=== PATIENT | female | born 1970 | race Caucasian/White ===

== ENCOUNTER → 2018-08-05 | Outpatient (CLI) | payer BC ==
--- NOTE | 2018-08-05 16:26 | RAD ---
EXAM: Left humerus, 2 views; left shoulder, 3 views. HISTORY: Pain. COMPARISON: None. FINDINGS: 2 views left humerus and 3 views of the left shoulder obtained. There is no fracture, dislocation or subluxation. IMPRESSION: No acute osseous finding. Electronically signed by: Rhiannon Gil MD (08/05/2018 4:23 PM) [id number]
== END | disposition home or self-care (01) ==
LOC: RAD 15:55
PROVIDERS: ATTEND Family Medicine
DX: M25.512 Pain in left shoulder (principal)
CPT/HCPCS: 73030; 73060

== ENCOUNTER 2019-06-29 17:04 | Emergency (ER) | payer BC ==
[~2019-06-29] VITALS: Ht 167.6 cm; Wt 77.5 kg
[2019-06-29] MEDS ORDERED: DEXAMETHASONE 4 MG TABLET PO ONE (18:00)
--- NOTE | 2019-06-29 18:04 | PHYS DOC ---
Past History Past Medical History: No Pertinent History Past Surgical History: , Hysterectomy Alcohol Use: None Drug Use: None Adult General Chief Complaint Chief Complaint: SORE THROAT HPI HPI Patient is a sore throat moderate worse with swallowing times one week associated with fatigue subjective fever at times Allergies Allergies Allergies Coded Allergies Type Severity Reaction Last Updated Verified codeine Allergy Unknown 06/29/19 Yes Physical Exam Physical Exam Constitutional: Well developed, well nourished, no acute distress, non-toxic appearance. [] HENT: Normocephalic, atraumatic, bilateral external ears normal, oropharynx moist, no oral exudates, nose normal. []Shotty lymphadenopathy noted no exudate no fluctuance of the tonsillar pillars noted. Eyes: PERRLA, EOMI, conjunctiva normal, no discharge. [] Neck: Normal range of motion, no tenderness, supple, no stridor. [] Cardiovascular:Heart rate regular rhythm, no murmur [] Lungs & Thorax: Bilateral breath sounds clear to auscultation [] Extremities: No tenderness, no cyanosis, no clubbing, ROM intact, no edema. [] Neurologic: Alert and oriented X 3, normal motor function, normal sensory function, no focal deficits noted. [] Psychologic: Affect normal, judgement normal, mood normal. [] Current Patient Data Vital Signs Vital Signs Date Time Temp Pulse Resp B/P (MAP) Pulse Ox O2 Delivery O2 Flow Rate FiO2 06/29/19 17:21 98.1 55 18 100 Room Air * Moderate Temperature (Fahrenheit): * 98.1 degrees F (97.6-99.5) Patient Temperature * 98.1 degrees F (97.5-99.5) Temperature Source * Oral Blood Pressure Systolic * 127 mm Hg (100-140) Blood Pressure Diastolic * 58 mm Hg (60-100) L Blood Pressure Mean * 81 mm Hg Blood Pressure Location * Right Arm Blood Pressure Source * Automatic Cuff Pulse Rate * 55 beats per minute (60-90) L Pulse Assessment Method * Monitor Respiratory Rate * 18 breaths per minute (12-24) Oxygen Delivery Method * Room Air Bedside Pulse Oximetry * 100 % Treatment Prior to Arrival Lab Results Laboratory Tests Test 06/29/19 17:40 Group A Streptococcus Rapid Negative (NEGATIVE) EKG EKG [] Radiology/Procedures Radiology/Procedures [] Course & Med Decision Making Course & Med Decision Making Pertinent Labs and Imaging studies reviewed. (See chart for details) []Decadron given for presumed viral pharyngitis based on negative rapid strep pa tient reassured well appearing no evidence of deep space neck infection Dragon Disclaimer Dragon Disclaimer This electronic medical record was generated, in whole or in part, using a voice recognition dictation system. Departure Departure: Impression: Primary Impression: Sore throat Disposition: HOME, SELF-CARE Condition: STABLE Patient Instructions: Sore Throat, [id number] UZIEL MCELROY MD Jun 29, 2019 18:04
[2019-06-29] MEDS ORDERED: DEXAMETHASONE SOD PHOS 10 MG/ML VIAL ONE (18:05)
[2019-06-29] MEDS ORDERED: DEXAMETHASONE SOD PHOS 4 MG/ML VIAL ONE (18:07)
[2019-06-29 18:31] VITALS: BP 114/69
== END 2019-06-29 18:32 | disposition home or self-care (01) ==
LOC: ER 17:04
DX: J02.9 Acute pharyngitis, unspecified (principal); Z88.5 Allergy status to narcotic agent
CPT/HCPCS: 87070; 87880; 99283; J8540

== ENCOUNTER 2020-08-04 12:55 | Emergency (ER) | payer BC ==
--- NOTE | 2020-08-04 14:27 | PHYS DOC ---
Past History Past Medical History: No Pertinent History Past Surgical History: , Hysterectomy Alcohol Use: None Drug Use: None General Adult EDM: Chief Complaint: URINARY RETENTION HPI: HPI: Patient is a 80-year-old female who presents with lower back pain and states "I feel like I have no sensation to urinate". Patient had gastric sleeve on July 19. Patient reports that symptoms started the day after. Patient states couple of days ago she noticed blood in her urine. Patient was seen at urgent care and started on Bactrim. Patient states the doctor called her today and told her that she did not have a UTI. Patient also reports a foul smell to her urine. Patient has been taking Tylenol at home for lower back discomfort. Patient denies pain with urination or frequency. Patient denies any health history. Review of Systems: Review of Systems: Constitutional: Denies fever or chills Eyes: Denies change in visual acuity HENT: Denies nasal congestion or sore throat Respiratory: Denies cough or shortness of breath Cardiovascular: Denies chest pain or edema GI: Denies abdominal pain, nausea, vomiting, bloody stools or diarrhea : Denies dysuria, reports decreased sensation to urinate. Musculoskeletal: Denies back pain or joint pain Integument: Denies rash Neurologic: Denies headache, focal weakness or sensory changes Endocrine: Denies polyuria or polydipsia Lymphatic: Denies swollen glands Psychiatric: Denies depression or anxiety Allergies: Allergies: Allergies Coded Allergies Type Severity Reaction Last Updated Verified codeine Allergy Unknown 06/29/19 Yes Physical Exam: PE: Constitutional: Well developed, well nourished, no acute distress, non-toxic a ppearance. [] HENT: Normocephalic, atraumatic, bilateral external ears normal, oropharynx moist, no oral exudates, nose normal. [] Eyes: PERRLA, EOMI, conjunctiva normal, no discharge. [] Neck: Normal range of motion, no tenderness, supple, no stridor. [] Cardiovascular:Heart rate regular rhythm, no murmur [] Lungs & Thorax: Bilateral breath sounds clear to auscultation [] Abdomen: Bowel sounds normal, soft, no tenderness, no masses, no pulsatile masses. [] Skin: Warm, dry, no erythema, no rash. [] Back: Lower back tenderness, no CVA tenderness. [] Extremities: No tenderness, no cyanosis, no clubbing, ROM intact, no edema. [] Neurologic: Alert and oriented X 3, normal motor function, normal sensory function, no focal deficits noted. [] Psychologic: Affect normal, judgement normal, mood normal. [] EKG: EKG: [] Radiology/Procedures: Radiology/Procedures: []CT abdomen and pelvis without contrast: Reason for examination: Loss of sensation to urinate. Helical images were obtained through the abdomen and pelvis with no intravenous or oral contrast administered. Reconstruction was performed in sagittal and coronal planes. Exposure: One or more of the following individualized dose reduction techniques were utilized for this examination: 1. Automated exposure control 2. Adjustment of the mA and/or kV according to patient size 3. Use of iterative reconstruction technique. The lung bases are clear. The heart size is normal with no pericardial effusion. There is a small hypodense lesion in the right lobe of the liver consistent with a small cyst measuring approximately 1 cm in size. No abnormality seen at the spleen, adrenal glands, pancreas or gallbladder. The abdominal aorta and inferior vena cava show no acute abnormalities. No abnormality seen at the appendix. There is no evidence of diverticulosis, diverticulitis or colitis. The small intestinal tract shows no abnormal dilatation, wall thickening or obstruction. There are postop changes in the stomach probably from gastric sleeve procedure. No abnormality seen at the duodenum. The kidneys show no renal masses, renal calculi, hydronephrosis or evidence of obstructive uropathy. No abnormality seen at the bladder or vaginal cuff. The ovary still appear to be present with possibly a small cyst at the left ovary measuring 9.4 mm in size. There does appear to be a small amount of fluid in the pelvic cul-de-sac. There is a unilateral pars defect on the left at the L5 vertebral body which is sclerotic and has a chronic appearance. No other focal bony abnormalities are seen. IMPRESSION: Small 1 cm lesion consistent with a cyst in the right lobe of the liver. Small 1.4 mm hypodense lesion consistent with a cyst in the left ovary. Small amount of free fluid in the pelvic cul-de-sac. 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 No apparent abnormalities of the kidneys or bladder. Electronically signed by: Dilma Romero MD (08/04/2020 3:00 PM) [facility] Heart Score: Risk Factors: Risk Factors: DM, Current or recent (<one month) smoker, HTN, HLP, family history of CAD, obesity. Risk Scores: Score 0 - 3: 2.5% MACE over next 6 weeks - Discharge Home Score 4 - 6: 20.3% MACE over next 6 weeks - Admit for Clinical Observation Score 7 - 10: 72.7% MACE over next 6 weeks - Early Invasive Strategies Course & Med Decision Making: Course & Med Decision Making Pertinent Labs and Imaging studies reviewed. (See chart for details) []Patient is a 80-year-old female who presents with lower back pain and states "I feel like I have no sensation to urinate". Patient had gastric sleeve on July 19. Patient reports that symptoms started the day after. Patient states couple of days ago she noticed blood in her urine. Patient was seen at urgent care and started on Bactrim. Patient states the doctor called her today and told her that she did not have a UTI. Patient also reports a foul smell to her urine. Patient has been taking Tylenol at home for lower back discomfort. Patient denies pain with urination or frequency. Patient denies any health history. UA ordered to check for infection. CT of abdomen and pelvis ordered. UA negative for leuks and nitrates. CT of abdomen negative for any acute abnormalities.CT did show small 1 cm lesion consistent with a cyst in the right lobe of the liver.Small 1.4 mm hypodense lesion consistent with a cyst in the left ovary. BUN and creatinine and lipase are slightly elevated. Informed patient of CT results and lab results. Patient is to follow-up with her PCP for further testing. Patient to return the emergency room with further concerns or worsening symptoms. Patient is okay with this plan. Dragon Disclaimer: Dragon Disclaimer: This electronic medical record was generated, in whole or in part, using a voice recognition dictation system. Departure Departure: Impression: Primary Impression: Symptoms involving urinary system Additional Impression: Blood in urine Qualified Codes: R31.9 - Hematuria, unspecified Disposition: 01 DC HOME SELF CARE/HOMELESS Condition: STABLE Referrals: JEN CHINO MD (PCP) Additional Instructions: You were seen in the emergency room for loss of sensation to urinate and blood in your urine. Your UA was negative for infection. Your CT of your abdomen and pelvis was negative for any acute abnormalities. The CT of your abdomen did show small 1 cm lesion consistent with a cyst in the right lobe of the liver. It also showed small 1.4 mm hypodense lesion consistent with a cyst in the left ovary. These results are something that you need to follow-up with your PCP about and I do not believe are relevant to the symptoms you are having today. Please return to the emergency room with worsening symptoms or concerns. EMERGENCY DEPARTMENT GENERAL DISCHARGE INSTRUCTIONS Thank you for coming to [facility] (ED) today and trusting us with you care. We trust that you had a positivie experience in our Emergency Department. If you wish to speak to the department management, you may call the director at [phone]. YOUR FOLLOW UP INSTRUCTIONS ARE FOLLOWS: 1. Do you have a private Doctor? If you do not have a private doctor, please ask for a resource list of physicians or clinics that may be able to assist you with fo llow up care. 2. The Emergency Physician has interpreted your x-rays. The X-Ray specialist will also review them. If there is a change in the findings, you will be notified in 48 hours when at all possible. 3. A lab test or culture has been done, your results will be reviewed and you will be notified if you need a change in treatment. ADDITIONAL INSTRUCTIONS AND INFORMATION: 1. Your care today has been supervised by a physician who is specially trained in emergency care. Many problems require more than one evaluation for a complete diagnosis and treatment. We recommend that you schedule your follow up appointment as recommended to ensure complete treatment of you illness or injury. If you are unable to obtain follow up care and continue to have a problem, or if your condition worsens, we recommend that you return to the ED. 2. We are not able to safely determine your condition over the phone nor are we able to give sound medical advice over the phone. For these safety reasons, if you call for medical advice we will ask you to come to the ED for further evaluation. 3. If you have any questions regarding these discharge instructions please call the ED at [phone]. SAFETY INFORMATION: In the interest of safety, wellness, and injury prevention; we encourage you to wear your sealbelt, if you smoke; quite smoking, and we encourage family to use a protecti ve helmet for bicycling and other sporting events that present an increased risk for head injury. IF YOUR SYMPTOMS WORSEN OR NEW SYMPTOMS DEVELOP, OR YOU HAVE CONCERNS ABOUT YOUR CONDITION; OR IF YOUR CONDITION WORSENS WHILE YOU ARE WAITING FOR YOUR FOLLOW UP APPOINTMENT; EITHER CONTACT YOUR PRIMARY CARE DOCTOR, THE PHYSICIAN WHOSE NAME AND NUMBER YOU WERE GIVEN, OR RETURN TO THE ED IMMEDIATELY. HEAVENLY OLIVAREZ APRN Aug 04, 2020 14:27
[2020-08-04 14:40] LABS: CALCIUM 8.7 mg/dL (8.5-10.1); CREATININE 1.2 mg/dL (0.6-1.0); GFR 47.4; POTASSIUM 4.2 mmol/L (3.5-5.1)
[2020-08-04 14:41] LABS: BASO # 0.1 x10^3/uL (0.0-0.2); BASO % 1 % (0-3); EOS # 0.1 x10^3/uL (0.0-0.7); EOS % 2 % (0-3); HEMATOCRIT 37.8 % (36.0-47.0); HEMOGLOBIN 12.6 g/dL (12.0-15.5); LYMPH # 1.4 x10^3/uL (1.0-4.8); LYMPH % 25 % (24-48); MEAN CORPUSCULAR HEMOGLOBIN 29 pg (25-35); MEAN CORPUSCULAR HGB CONC 33 g/dL (31-37); MEAN CORPUSCULAR VOLUME 88 fL (79-100); MONO # 0.8 x10^3/uL (0.0-1.1); MONO % 13 % (0-9); NEUT # 3.4 x10^3uL (1.8-7.7); NEUT % 59 % (31-73); PLATELET COUNT 238 x10^3/uL (140-400); RED BLOOD COUNT 4.29 x10^6/uL (3.50-5.40); RED CELL DISTRIBUTION WIDTH 13.2 % (11.5-14.5); WHITE BLOOD COUNT 5.7 x10^3/uL (4.0-11.0)
[2020-08-04 14:46] LABS: ALBUMIN 3.4 g/dL (3.4-5.0); ALBUMIN/GLOBULIN RATIO 0.9 (1.0-1.7); TOTAL BILIRUBIN 0.1 mg/dL (0.2-1.0); TOTAL PROTEIN 7.1 g/dL (6.4-8.2)
[2020-08-04 14:47] LABS: BACTERIA,URINE MOD /HPF (0-FEW); BILIRUBIN,URINE NEG (NEG); CLARITY,URINE CLEAR; COLOR,URINE YELLOW; GLUCOSE,URINE NEG (NEG); NITRITE,URINE NEG (NEG); RBC,URINE OCC /HPF (0-2); SQUAMOUS EPITHELIAL CELL,UR MANY /LPF; UROBILINOGEN,URINE 0.2 mg/dL (0.2 mg/dL)
--- NOTE | 2020-08-04 15:03 | RAD ---
CT abdomen and pelvis without contrast: Reason for examination: Loss of sensation to urinate. Helical images were obtained through the abdomen and pelvis with no intravenous or oral contrast admi nistered. Reconstruction was performed in sagittal and coronal planes. Exposure: One or more of the following individualized dose reduction techniques were utilized for thi s examination: 1. Automated exposure control 2. Adjustment of the mA and/or kV according to patient size 3. Use of iterative reconstruction technique. The lung bases are clear. The heart size is normal with no pericardial effusion. There is a small hypodense lesion in the right lobe of the liver consistent with a small cyst measuri ng approximately 1 cm in size. No abnormality seen at the spleen, adrenal glands, pancreas or gallbla dder. The abdominal aorta and inferior vena cava show no acute abnormalities. No abnormality seen at the appendix. There is no evidence of diverticulosis, diverticulitis or colitis. The small intestinal tract shows no abnormal dilatation, wall thickening or obstruction. There are postop changes in the stomach probably from gastric sleeve procedure. No abnormality seen at the duodenum. The kidneys show no renal masses, renal calculi, hydronephrosis or evidence of obstructive uropathy. No abnormality seen at the bladder or vaginal cuff. The ovary still appear to be present with possibl y a small cyst at the left ovary measuring 9.4 mm in size. There does appear to be a small amount of fluid in the pelvic cul-de-sac. There is a unilateral pars defect on the left at the L5 vertebral bod y which is sclerotic and has a chronic appearance. No other focal bony abnormalities are seen. IMPRESSION: Small 1 cm lesion consistent with a cyst in the right lobe of the liver. Small 1.4 mm hypodense lesion consistent with a cyst in the left ovary. Small amount of free fluid in the pelvic cul-de-sac. 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 No apparent abnormalities of the kidneys or bladder. Electronically signed by: Dilma Duarte MD (08/04/2020 3:00 PM) [facility]
== END 2020-08-04 16:16 | disposition home or self-care (01) ==
LOC: ER 12:55
DX: R31.9 Hematuria, unspecified (principal); M54.5 Low back pain; R20.2 Paresthesia of skin; Z98.890 Other specified postprocedural states; Z90.710 Acquired absence of both cervix and uterus; Z88.5 Allergy status to narcotic agent
CPT/HCPCS: 36415; 74176; 80053; 81001; 83690; 85025; 87086; 99284

== ENCOUNTER 2021-10-22 09:08 | Emergency (ER) | payer BC ==
[~2021-10-22] VITALS: Ht 167.6 cm; Wt 77.5 kg
[2021-10-22 09:15] VITALS: BP 106/43
[2021-10-22] MEDS ORDERED: VALA10008 PO (09:56)
[2021-10-22] MEDS ORDERED: PRED50TA PO (09:56)
[2021-10-22] MEDS ORDERED: HYDR-2155 PO (09:56)
--- NOTE | 2021-10-22 10:00 | PHYS DOC ---
Past History Past Medical History: No Pertinent History Past Surgical History: , Hysterectomy Alcohol Use: None Drug Use: None Adult General Chief Complaint Chief Complaint: MULTIPLE COMPLAINTS HPI HPI Patient presents with complaint of ear pain initially beginning 2 days ago. Patient then with pain spreading to the right posterior head and neck region and now developed a rash in last 24 hours in this region. Patient denies any fevers or chills, no vertigo no dizziness. Patient denies any eye discomfort or pain Review of Systems Review of Systems Constitutional: Denies fever or chills [] Eyes: Denies change in visual acuity, redness, or eye pain [] HENT: Denies nasal congestion or sore throat [] Respiratory: Denies cough or shortness of breath [] Cardiovascular: No additional information not addressed in HPI [] GI: Denies abdominal pain, nausea, vomiting, bloody stools or diarrhea [] : Denies dysuria or hematuria [] Musculoskeletal: Denies back pain or joint pain [] Integument: Rash to posterior neck and head Neurologic: Denies headache, focal weakness or sensory changes [] Endocrine: Denies polyuria or polydipsia [] All other systems were reviewed and found to be within normal limits, except as documented in this note. Allergies Allergies Allergies Coded Allergies Type Severity Reaction Last Updated Verified codeine Allergy Unknown 06/29/19 Yes Physical Exam Physical Exam Constitutional: Well developed, well nourished, no acute distress, non-toxic appearance. [] HENT: Normocephalic, atraumatic, bilateral external ears normal, oropharynx moist, no oral exudates, nose normal. [] Eyes: PERRLA, EOMI, conjunctiva normal, no discharge. [] Neck: Normal range of motion, no tenderness, supple, no stridor. [] Cardiovascular:Heart rate regular rhythm, no murmur [] Lungs & Thorax: Bilateral breath sounds clear to auscultation [] Abdomen: Bowel sounds normal, soft, no tenderness, no masses, no pulsatile masses. [] Skin: Rash noted to right posterior neck and right posterior scalp region, does not cross the midline, significant pain in this area with minimal palpation Back: No tenderness, no CVA tenderness. [] Extremities: No tenderness, no cyanosis, no clubbing, ROM intact, no edema. [] Neurologic: Alert and oriented X 3, normal motor function, normal sensory function, no focal deficits noted. [] Psychologic: Affect normal, judgement normal, mood normal. [] Current Patient Data Vital Signs Vital Signs Date Time Temp Pulse Resp B/P (MAP) Pulse Ox O2 Delivery O2 Flow Rate FiO2 10/22/21 09:15 97.9 66 14 106/43 (64) 99 Room Air EKG EKG [] Radiology/Procedures Radiology/Procedures [] Impressions: Shingles Heart Score C/O Chest Pain: No HEART Score for Chest Pain: HEART Score for Chest Pain Response (Comments) Value History Slighlty/Non-Suspicious 0 ECG Normal 0 Age >45 - < 65 1 Risk Factors No Risk Factors 0 Troponin < Normal Limit 0 Total 1 Risk Factors: Risk Factors: DM, Current or recent (<one month) smoker, HTN, HLP, family history of CAD, obesity. Risk Scores: Risk Factors: DM, Current or recent (<one month) smoker, HTN, HLP, family history of CAD, obesity. Course & Med Decision Making Course & Med Decision Making Patient with rash and pain consistent with shingles. There is no ophthalmic involvement. Patient will be initiated on corticosteroids as well as antiviral. Patient counseled at length as to return for any eye involvement. Return precautions discussed Dragon Disclaimer Dragon Disclaimer This electronic medical record was generated, in whole or in part, using a voice recognition dictation system. Departure Departure: Impression: Primary Impression: Shingles Disposition: 01 HOME / SELF CARE / HOMELESS Condition: STABLE Referrals: JEN CHINO MD (PCP) Patient Instructions: Shingles Scripts Prednisone (PREDNISONE) 50 Mg Tablet 50 MG PO DAILY for shingles for 5 Days, #5 TAB Prov: ANGELITO GALLO MD 10/22/21 Valacyclovir Hcl (VALACYCLOVIR) 1,000 Mg Tablet 1000 MG PO TID for shingles for 7 Days, #21 TAB Prov: ANGELITO GALLO MD 10/22/21 ANGELITO GALLO MD October 22, 2021 10:00
== END 2021-10-22 10:00 | disposition home or self-care (01) ==
LOC: ER 09:08
DX: B02.9 Zoster without complications (principal); H92.01 Otalgia, right ear; Z88.5 Allergy status to narcotic agent
CPT/HCPCS: 99283

== ENCOUNTER 2021-11-06 15:47 | Emergency (ER) | payer SELFPAY ==
[~2021-11-06] VITALS: Ht 167.6 cm; Wt 77.5 kg
[~2021-11-06 15:47] MED LIST: HYDR-2155 PO; PRED50TA PO; VALA10008 PO
[2021-11-06 16:06] VITALS: BP 120/53
[2021-11-06] MEDS ORDERED: GABA-586 PO (17:05)
[2021-11-06] MEDS ORDERED: OXYC1TAB19 PO (17:05)
--- NOTE | 2021-11-06 17:10 | PHYS DOC ---
Past History Past Medical History: No Pertinent History (HEAVENLY OLIVAREZ APRN) Past Surgical History: , Hysterectomy (HEAVENLY OLIVAREZ APRN) Alcohol Use: None Drug Use: None (HEAVENLY OLIVAREZ APRN) General Adult EDM: Chief Complaint: SHINGLES HPI: HPI: Patient is a 51-year-old female presents with pain on the back of her neck. Patient states that she was treated 2 weeks ago for shingles. Patient reports taking all the medication that was prescribed to her for shingles treatment. Patient states that she is having a lot of pain and cannot touch the back of her neck. Patient states that the hydrocodone she was prescribed did not work. No new vesicles seen. Patient states that the area is scabbed over and was healing prior to pain beginning again. Denies medical history. (HEAVENLY OLIVAREZ APRN) Review of Systems: Review of Systems: ROS At least 10 ROS systems have been reviewed and are negative except as documented in the HPI. General: Negative except as outlined in HPI above. Skin: Negative except as outlined in HPI above. HEENT: Negative except as outlined in HPI above. Neck: Negative except as outlined in HPI above. Respiratory: Negative except as outlined in HPI above.. Cardiovascular: Negative except as outlined in HPI above. Abdomen: Negative except as outlined in HPI above. : Negative except as outlined in HPI above. Back/MSK: Negative except as outlined in HPI above. Neuro: Negative except as outlined in HPI above. Psych: Negative except as outlined in HPI above. (HEAVENLY OLIVAREZ APRN) Allergies: Allergies: Allergies Coded Allergies Type Severity Reaction Last Updated Verified codeine Allergy Unknown 06/29/19 Yes (HEAVENLY OLIVAREZ APRN) Physical Exam: PE: Constitutional: Well developed, well nourished, no acute distress, non-toxic appearance. [] HENT: Normocephalic, atraumatic, bilateral external ears normal, oropharynx moist, no oral exudates, nose normal. [] Eyes: PERRLA, EOMI, conjunctiva normal, no discharge. [] Neck: Normal range of motion, no tenderness, supple, no stridor. [] Cardiovascular:Heart rate regular rhythm, no murmur [] Lungs & Thorax: Bilateral breath sounds clear to auscultation [] Abdomen: Bowel sounds normal, soft, no tenderness, no masses, no pulsatile masses. [] Skin: Redness to the back of neck Back: No tenderness, no CVA tenderness. [] Extremities: No tenderness, no cyanosis, no clubbing, ROM intact, no edema. [] Neurologic: Alert and oriented X 3, normal motor function, normal sensory func tion, no focal deficits noted. [] Psychologic: Affect normal, judgement normal, mood normal. [] (HEAVENLY OLIVAREZ APRN) Current Patient Data: Vital Signs: Vital Signs Date Time Temp Pulse Resp B/P (MAP) Pulse Ox O2 Delivery O2 Flow Rate FiO2 11/06/21 16:06 98.9 58 16 120/53 (75) 100 Room Air (HEAVENLY OLIVAREZ APRN) EKG: EKG: [] (HEAVENLY OLIVAREZ APRN) Radiology/Procedures: Radiology/Procedures: [] (HEAVENLY OLIVAREZ APRN) Heart Score: C/O Chest Pain: No Risk Factors: Risk Factors: DM, Current or recent (<one month) smoker, HTN, HLP, family histo ry of CAD, obesity. Risk Scores: Score 0 - 3: 2.5% MACE over next 6 weeks - Discharge Home Score 4 - 6: 20.3% MACE over next 6 weeks - Admit for Clinical Observation Score 7 - 10: 72.7% MACE over next 6 weeks - Early Invasive Strategies (HEAVENLY OLIVAREZ APRN) Course & Med Decision Making: Course & Med Decision Making Pertinent Labs and Imaging studies reviewed. (See chart for details) [] 51-year-old male presents with pain to the back of her neck. Patient was treated 2 weeks ago for shingles. Patient most likely has post herpetic neuralgia. Home with gabapentin along with Percocet. Instructed patient to follow-up with PCP for further management or continuing of medication for pain relief. Patient agrees to discharge plan. (HEAVENLY OLIVAREZ APRN) Dragon Disclaimer: Dragon Disclaimer: This electronic medical record was generated, in whole or in part, using a voice recognition dictation system. (HEAVENLY OLIVAREZ APRN) Attending Co-Sign The patient was seen and interviewed as well as examined at the bedside. The chart was reviewed. The case was discussed. Agree with the plan of care. (PEREZ,GAGANDEEP DO) Departure Departure: Impression: Primary Impression: Neuralgia involving scalp Disposition: HOME / SELF CARE / HOMELESS Condition: STABLE Referrals: JEN CHINO MD (PCP) Patient Instructions: Postherpetic Neuralgia Additional Instructions: You are seen in the emergency room for pain after shingles. I did not see any vesicles on the back of your neck. I did see some redness. Most likely you have some pain caused by post herpetic neuralgia. I am sending you home on 2 medications to help with pain. Please follow-up with your PCP. Return emergency room with worsening symptoms or concerns. EMERGENCY DEPARTMENT GENERAL DISCHARGE INSTRUCTIONS Thank you for coming to [facility] (ED) today and trusting us with you care. We trust that you had a positivie experience in our Emergency Department. If you wish to speak to the department management, you may call the director at [phone]. YOUR FOLLOW UP INSTRUCTIONS ARE FOLLOWS: 1. Do you have a private Doctor? If you do not have a private doctor, please ask for a resource list of physicians or clinics that may be able to assist you with follow up care. 2. The Emergency Physician has interpreted your x-rays. The X-Ray specialist w ill also review them. If there is a change in the findings, you will be notified in 48 hours when at all possible. 3. A lab test or culture has been done, your results will be reviewed and you will be notified if you need a change in treatment. ADDITIONAL INSTRUCTIONS AND INFORMATION: 1. Your care today has been supervised by a physician who is specially trained in emergency care. Many problems require more than one evaluation for a complete diagnosis and treatment. We recommend that you schedule your follow up appointment as recommended to ensure complete treatment of you illness or injury. If you are unable to obtain follow up care and continue to have a problem, or if your condition worsens, we recommend that you return to the ED. 2. We are not able to safely determine your condition over the phone nor are we able to give sound medical advice over the phone. For these safety reasons, if you call for medical advice we will ask you to come to the ED for further evaluation. 3. If you have any questions regarding these discharge instructions please call the ED at [phone]. SAFETY INFORMATION: In the interest of safety, wellness, and injury prevention; we encourage you to wear your sealbelt, if you smoke; quite smoking, and we encourage family to use a protective helmet for bicycling and other sporting events that present an increased risk for head injury. IF YOUR SYMPTOMS WORSEN OR NEW SYMPTOMS DEVELOP, OR YOU HAVE CONCERNS ABOUT YOUR CONDITION; OR IF YOUR CONDITION WORSENS WHILE YOU ARE WAITING FOR YOUR FOLLOW UP APPOINTMENT; EITHER CONTACT YOUR PRIMARY CARE DOCTOR, THE PHYSICIAN WHOSE NAME AND NUMBER YOU WERE GIVEN, OR RETURN TO THE ED IMMEDIATELY. Scripts Oxycodone Hcl/Acetaminophen (PERCOCET 7.5-325 MG TABLET ) 1 Each Tablet 1 TAB PO PRN TID PRN for BREAKTHROUGH PAIN MDD 3 Tablet(s) for 5 Days, #15 TAB 0 Refills Prov: HEAVENLY OLIVAREZ APRN 11/06/21 Gabapentin (GABAPENTIN ) 300 Mg Capsule 300 MG PO TID for NEUROGENIC PAIN for 7 Days, #21 CAP Prov: HEAVENLY OLIVAREZ APRN 11/06/21 HEAVENLY OLIVAREZ APRN November 06, 2021 17:10 GAGANDEEP PEREZ DO November 07, 2021 10:32
== END 2021-11-06 17:38 | disposition home or self-care (01) ==
LOC: ER 15:47
DX: M79.2 Neuralgia and neuritis, unspecified (principal); Z90.710 Acquired absence of both cervix and uterus
CPT/HCPCS: 99283